=== PATIENT | female | born 1990 | race American Indian/Alaskan Native ===

== ENCOUNTER 2018-03-18 10:43 | Emergency (ER) | payer SELFPAY ==
[2018-03-18 10:52] VITALS: BP 138/90
[2018-03-18] MEDS ORDERED: NACL 0.9% 1000 ML 1,000 ML IV ONE ×2 (11:14→13:40)
--- NOTE | 2018-03-18 11:17 | Emergency Department Report ---
Blank Doc - Documentation Documentation: Patient is a 27-year-old black female who is presenting with a syncopal episode. Patient states that today as well as last Thursday she had episodes where all of a sudden she had a surgeon come over her body of the felt warm she got short of breath dizzy and she actually passed out today after this episode. Patient states she's had increased thirst and increased urination and decreased hunger for the last several months. Patient also was crying during the history and physical stating that she lost her father to illness several months ago and she has been grieving. Brief physical exam patient is tachycardic lungs are clear to auscultation. Patient be moved to treatment room for further management in the main ED.
--- NOTE | 2018-03-18 11:39 | Emergency Department Report ---
HPI - General Chief Complaint: Dizziness Time Seen by Provider: 03/18/18 11:05 - HPI HPI: Room 6 The patient is a 27-year-old female presenting with a chief complaint of syncope. The patient states her father approximately 9 months ago and since that time she has had difficulty sleeping and does not wish to go "out" and family members/coworkers are stating that she has "changed" since his . The patient states she uses OTC sleep aids to get rest at night. The patient states she does experience polydipsia almost 8 months. The patient states she's had polyuria for approximately 2 months approximately one week ago the patient states she was at work when she began to feel hot and dizzy but the symptoms subsided. The patient states today at work while walking to the building she began to feel hot and had chest tightness and then had a syncopal episode. Coworkers picked her up and place her in her car and turned on the air conditioning. The patient states she did not want coworkers to call EMS. The patient states she only improved control herself to the ED. Patient denies suicidal ideation, homicidal ideation or hallucinations. When asked how she is feeling right now the patient replies "okay." Location: [See above] Duration: [See above] Quality: Lightheadedness Severity: Moderate Modifying factors: [see above] Context: [see above] Mode of transportation: The patient drove herself to the ED ED Past Medical Hx - Past Medical History Previous Medical History?: Yes Additional medical history: Pediatric Bronchitis - Surgical History Past Surgical History?: Yes Additional Surgical History: Tonsillectomy - Family History Family history: no significant - Social History Smoking Status: Current Every Day Smoker (1/7 pack per day) Substance Use Type: None (denies illicit drug use) - Medications Home Medications: Home Medications Medication Instructions Recorded Confirmed Last Taken Type HYDROcodone/APAP 5-325 [[place] 1 each PO Q6HR PRN #20 tablet 05/07/15 Unknown Rx 5/325] Penicillin Vk [Veetids TAB] 500 mg PO QID #40 tablet 05/07/15 Unknown Rx ED Review of Systems ROS: Stated complaint: DIZZY, NO APPETITE Other details as noted in HPI Cardiovascular: chest pain Endocrine: increased thirst, increased urine Genitourinary: frequency Neurological: other (syncope) Physical Exam - Physical Exam Vital Signs: Vital Signs 03/18/18 10:48 Temperature 98.3 F Pulse Rate 132 H Respiratory 22 Rate Blood Pressure 138/90 O2 Sat by Pulse 100 Oximetry Physical Exam: GENERAL: The patient is well-developed well-nourished female lying on stretcher not appearing to be in acute distress. [] HEENT: Normocephalic. Atraumatic. Extraocular motions are intact. Patient has moist mucous membranes. NECK: Supple. No meningitic signs are noted. There is no adenopathy noted. CHEST/LUNGS: Clear to auscultation. There is no respiratory distress noted. HEART/CARDIOVASCULAR: Regular. There is no tachycardia. There is no gallop rub or murmur. ABDOMEN: Abdomen is soft, nontender. Patient has normal bowel sounds. There is no abdominal distention. SKIN: There is no rash. There is no edema. There is no diaphoresis. NEURO: The patient is awake, alert, and oriented. The patient is cooperative. The patient has no focal neurologic deficits. The patient has normal speech. Cranial nerves II through XII grossly intact, no drift MUSCULOSKELETAL: There is no evidence of acute injury. ED Course Vital Signs 03/18/18 10:48 Temperature 98.3 F Pulse Rate 132 H Respiratory 22 Rate Blood Pressure 138/90 O2 Sat by Pulse 100 Oximetry - Reevaluation(s) Reevaluation #1: 03/18/18 15:03 After IV fluids patient is not orthostatic and is currently asymptomatic. ED Medical Decision Making - Lab Data Result diagrams: 03/18/18 11:35 03/18/18 11:35 - EKG Data -: EKG Interpreted by Me EKG shows normal: sinus rhythm Rate: tachycardia (123 bpm) - EKG Data When compared to previous EKG there are: previous EKG unavailable Interpretation: nonspecific ST-T wave radha (T-wave inversion in lead 3) - Radiology Data Radiology results: report reviewed (CT head, chest x-ray), image reviewed (CT head, chest x-ray) interpreted by me: Chest x-ray-no focal infiltrate, no pneumothorax [facility] [address] [place] [address] Cat Scan Report Signed Patient: LESVIA MCINTYRE MR#: [id number] : 1990 Acct:[id number] Age/Sex: 27 / F ADM Date: 03/18/18 Loc: ED Attending Dr: Ordering Physician: KENDRA THORNTON MD Date of Service: 03/18/18 Procedure(s): CT head/brain wo con Accession Number(s): [id number] cc: KENDRA THORNTON MD CT scan of head without IV contrast: History: Lightheadedness and dizziness. Findings: Ventricles are normal in size and midline in location. The kidney, hemorrhage or mass. No extra-axial fluid collection. Normal brainstem and cerebral normal visualized sinuses and mastoid air cells. Impression: No acute intracranial abnormality. Transcribed By: PTP Dictated By: BERNABE CHESTER MD Electronically Authenticated By: BERNABE CHESTER MD Signed Date/Time: 03/18/18 124 DD/ 124 TD/TT: 03/18/18 1246 - Differential Diagnosis depression, PE, hyperthyroidism, new-onset diabetes, dysrhythmia Critical care attestation.: If time is entered above; I have spent that time in minutes in the direct care of this critically ill patient, excluding procedure time. ED Disposition Clinical Impression: Dehydration, Grieving Disposition: DC-01 TO HOME OR SELFCARE Is pt being admited?: No Does the pt Need Aspirin: No Condition: Stable Instructions: Depression (ED) Additional Instructions: Return to the emergency department immediately should you develop worsening symptoms, fever, inability to tolerate food or liquid or any other concerns. Referrals: PRIMARY CARE, [Primary Care Provider] - 3-5 Days [facility] [Outside] - 3-5 Days Time of Disposition: 15:05
[2018-03-18 12:08] LABS: Basophils % (Auto) 0.4 % (0.0-1.8); Eosinophils # (Auto) 0.1 K/mm3 (0.0-0.4); Eosinophils % (Auto) 0.9 % (0.0-4.3); Hematocrit 35.7 % (30.3-42.9); Hemoglobin 11.1 gm/dl (10.1-14.3); Lymphocytes # (Auto) 2.2 K/mm3 (1.2-5.4); Lymphocytes % (Auto) 33.1 % (13.4-35.0); Mean Corpuscular HGB Conc 31 % (30-34); Mean Corpuscular Hemoglobin 23 pg (28-32); Mean Corpuscular Volume 74 fl (79-97); Monocytes # (Auto) 0.5 K/mm3 (0.0-0.8); Monocytes % (Auto) 7.6 % (0.0-7.3); Platelet Count 385 K/mm3 (140-440); Red Blood Count 4.84 M/mm3 (3.65-5.03); Red Cell Distribution Width 17.9 % (13.2-15.2)
[2018-03-18 12:42] LABS: Alanine Aminotransferase 15 units/L (7-56); Albumin 3.8 g/dL (3.9-5); BUN/Creatinine Ratio 6; Blood Urea Nitrogen 5 mg/dL (7-17); Hemolysis Index 9
--- NOTE | 2018-03-18 12:45 | XRay Report ---
Single view chest: History: Lightheadedness and dizziness. Findings: Normal cardiomediastinal silhouette the trachea is midline. No consolidation, pneumothorax or pleural effusion. Impression: No acute cardiopulmonary findings.
[2018-03-18 12:46] LABS: Creatine Kinase MB < 1.0 ng/mL (0.0-4.0); Free T4 (Free Thyroxine) 1.1 ng/dL (0.76-1.46)
[2018-03-18 12:59] LABS: Bilirubin,Urine NEG (Negative); Blood,Urine MOD (Negative); Color,Urine Yellow (Yellow); Protein,Urine <15 mg/dL mg/dL (Negative); Urobilinogen,Urine < 2.0 mg/dL (<2.0)
[2018-03-18 13:07] LABS: Amphetamine Screen,Urine PRESUMPTIVE NEGATIVE; Benzodiazepines Screen,Urine PRESUMPTIVE NEGATIVE; Cannabinoid Screen,Urine PRESUMPTIVE NEGATIVE; Cocaine Screen,Urine PRESUMPTIVE NEGATIVE; Methadone Screen,Urine PRESUMPTIVE NEGATIVE; Opiate Screen,Urine PRESUMPTIVE NEGATIVE
--- NOTE | 2018-03-18 13:08 | Cat Scan Report ---
CT scan of head without IV contrast: History: Lightheadedness and dizziness. Findings: Ventricles are normal in size and midline in location. The kidney, hemorrhage or mass. No extra-axial fluid collection. Normal brainstem and cerebral normal visualized sinuses and mastoid air cells. Impression: No acute intracranial abnormality.
== END 2018-03-18 16:00 | disposition home or self-care (01) ==
LOC: ED 10:43
DX: E86.0 Dehydration (principal); F17.200 Nicotine dependence, unspecified, uncomplicated
CPT/HCPCS: 36415; 70450; 71045; 80053; 80307; 81001; 82550; 82553; 82805; 83880; 84439; 84443; 84484; 84703; 85025; 85379; 93005; 93010; 96360; 99285; J7030

== ENCOUNTER 2021-08-22 19:46 | Outpatient (CLI) | payer MEDICAID ==
[2021-08-22 21:08] VITALS: BP 125/66
[2021-08-22] MEDS ORDERED: LACTATED RINGERS 1,000 ML IV ONE (22:16)
== END 2021-08-22 22:33 | disposition home or self-care (01) ==
LOC: TRG 19:46 → APU 20:03 → TRG 22:33
PROVIDERS: ATTEND Obstetrics & Gynecology
DX: O36.8120 Decreased fetal movements, second trimester, not applicable or unspecified (principal); Z3A.27 27 weeks gestation of pregnancy
CPT/HCPCS: 59025

== ENCOUNTER 2021-11-15 14:40 | Outpatient (CLI) | payer MEDICAID ==
[2021-11-15 15:43] VITALS: BP 134/67
[2021-11-15 16:15] LABS: Hematocrit 29.7 % (30.3-42.9); Hemoglobin 9.3 gm/dl (10.1-14.3); Mean Corpuscular HGB Conc 31 % (30-34); Mean Corpuscular Volume 79 fl (79-97); Platelet Count 316 K/mm3 (140-440); Red Blood Count 3.76 M/mm3 (3.65-5.03); Red Cell Distribution Width 14.9 % (13.2-15.2)
[2021-11-15 16:52] LABS: Alanine Aminotransferase 6 units/L (7-56); Uric Acid 3.1 mg/dL (3.5-7.6)
[2021-11-15 16:53] LABS: Bilirubin,Urine NEG (Negative); Blood,Urine NEG (Negative); Color,Urine Yellow (Yellow); Protein,Urine <15 mg/dL mg/dL (Negative); Urobilinogen,Urine < 2.0 mg/dL (<2.0); WBC,Urine < 1.0 /HPF (0.0-6.0)
--- NOTE | 2021-11-15 17:55 | Ultrasound Report ---
ULTRASOUND OBSTETRIC LIMITED ULTRASOUND BIOPHYSICAL PROFILE INDICATION / CLINICAL INFORMATION: well beinging. COMPARISON: None available. FINDINGS: BREATHING MOVEMENT = 0 GROSS BODY MOVEMENT = 2 TONE = 0 QUALITATIVE AMNIOTIC FLUID VOLUME = 2 TOTAL BIOPHYSICAL SCORE = 4/8 HEART RATE (beats per minute): 149 AMNIOTIC FLUID INDEX (cm) = 8.4 (normal = 7-24 cm) PRESENTATION: Cephalic. ADDITIONAL FINDINGS: None. IMPRESSION: 1. Biophysical Score = 4/8 Signer Name: Jamil Monet MD Signed: 11/15/2021 5:51 PM Workstation Name: [email or web address]
--- NOTE | 2021-11-17 16:48 | Event Note ---
Date: 11/15/21 late entry POC and results d/w pt. Questions encouraged and addressed. Pt refuses admission to labor with induction as advised. Risks to including but not limited to discussed. Pt verbalizes understanding and still continues to refuse induction of labor and admission to labor unit. Dr. Fernandez made aware.
== END 2021-11-15 17:22 | disposition left against medical advice (07) ==
LOC: TRG 14:40 → APU 14:42 → TRG 17:22
PROVIDERS: ATTEND Student in an Organized Health Care Education/Training Program
DX: O36.8130 Decreased fetal movements, third trimester, not applicable or unspecified (principal); Z3A.39 39 weeks gestation of pregnancy
CPT/HCPCS: 36415; 76815; 76819; 81001; 82565; 83615; 84450; 84460; 84550; 85027